=== PATIENT | male | born 1970 | race Caucasian/White ===

== ENCOUNTER 2023-08-15 14:38 | Emergency (ER) | payer BC ==
--- OUTSIDE RECORDS SUMMARY | 2023-08-15 14:56 | XMS REPORT | Continuity of Care Document ---
:1970 Author Organization [facility] t Address [address] [facility] [address] [place] [address] Care Team Providers Name Role Phone SEBASTIEN JENKINS Attending Clinician Unavailable Sandy Williamson Attending Clinician Sebastien Jenkins MD Attending Clinician MAIKEL TORRES Attending Clinician Unavailable Lab, Adc Fam Pob I Attending Clinician Unavailable Maikel Torres PA-C Attending Clinician Payers Payer Name Policy Type Policy Number Effective Date Expiration Date S [facility] - [id number] 2020 00:00:00 OUT OF STATE Problems Condition Condition Condition Status Onset Resolution Last Treating Co mments Source Name Details Category Date Date Treatment Clinician Date No known No known Disease Unive rs active active ity of problems problems [facility] Allergies, Adverse Reactions, Alerts Allergy Allergy Status Severity Reaction(s) Onset Inactive Treating Comm ents Source Name Type Date Date Clinician NO KNOWN Drug Active Univers ALLERGIE Class ity of S [facility] Social History Social Habit Start Date Stop Date Quantity Comments Source Exposure to Not sure [facility] SARS-CoV-2 (event) Medica l Branch Tobacco use and 2021-03-16 2021-03-16 Never used [facility] exposure 00:00:00 00:00:00 [facility] Sex Ass[birth year] At [birth year] [facility] 00:00:00 00:00:00 [facility] Smoking Status Start Date Stop Date Source Unknown if ever smoked [facility] Current every day smoker 2021-03-16 00:00:00 Uni versity [facility] Medications Ordered Filled Start Stop Current Ordering Indication Dosage Frequency Signature Comments Components Source Medication Medication Date Date Medication? Clinician (SIG) Name Name triamcinolo 2020- No [id number] 40mg [facility] 03-16 ity of acetonide 18:45: 17:37 [place] (KENALOG) 00 :00 Medical injection Branch 40 mg triamcinolo 2020- No [id number] 40mg 40 mg, [facility] 03-16 Intramuscu ity of acetonide 18:45: 17:37 [place] 00 :00 1 dose, Medical injection 03/16/21 Bran ch 40 mg at 1345, Routine triamcinolo 2020- No [id number] Apply to [facility] 03-16 area(s) 2 ity of acetonide 00:00: 04:59 (two) [place] 0.1 % 00 :00 times Medical ointment daily for Branch 7 days. Vital Signs Vital Name Observation Time Observation Value Comments Source Systolic blood 2021-03-16 17:20:00 116 mm[facility]Hg[facility] Diastolic blood 2021-03-16 17:20:00 66 mm[Hg] [facility] 2021-03-16 17:20:00 85 /min [facility] Body temperature 2021-03-16 17:20:00 36.56 [facility] Respiratory rate 2021-03-16 17:20:00 18 /min [facility] Body height 2021-03-16 17:20:00 175.3 cm [facility] Body weight 2021-03-16 17:20:00 79.379 kg [facility] BMI 2021-03-16 17:20:00 25.84 kg/m2 [facility] Oxygen saturation in 2021-03-16 17:20:00 97 /min [facility] Arterial blood by [facility] Pulse oximetry Branch Procedures This patient has no known procedures. Encounters Start End Encounter Admission Attending Care Care Encounter Source Date/Time Date/Time Type Type Clinicians Facility Department ID 2021-03-16 2021-03-16 Outpatient Jasmyne JENKINS [facility] [id number] Univers 14:45:00 14:45:00 SEBASTIEN [facility]ly [facility] 2021-03-16 2021-03-16 Outpatient R GREGORY [facility] [id number] Univers 14:00:00 14:00:00 SEBASTIEN [facility] 2021-03-16 2021-03-16 Urgent Sandy Meyers [facility] [[email or web address]] [id number] Univers 12:15:07 12:35:07 Sebastien Reza Formerly [facility] [id number] ity of [place] [id number] Brendon as Professio [phone] Ut dical nal [address] 2020-10-16 2020-10-16 Outpatient R MELISSA [facility] [id number] Univers 18:40:00 18:40:00 MAIKEL [facility] 2020-10-16 2020-10-16 Laboratory Lab, Adc Fam Pob I [facility] [[email or web address]] [id number] Univers 15:48:22 16:08:22 Only Melissa [facility] [id number] ity of [place] [id number] Brendon as Professio [phone] Ut dical nal [address] Results This patient has no known results.
[2023-08-15 15:13] LABS: Absolute Lymphocytes (CBC) 0.9 K/uL (0.7-4.9); Hematocrit 41.6 % (39.6-49.0); Lymphocytes % 14.6 % (15.3-44.8); MCV 82.3 fL (80-100); MPV 7.4 fL (7.6-11.3); Platelets 192 thou/uL (152-406); RBC Red Blood Cell Count 5.06 M/uL (4.33-5.43)
[2023-08-15 15:27] LABS: Potassium 4.2 mEq/L (3.5-5.1)
[2023-08-15] MEDS ORDERED: NA CHLORIDE 0.9% 1,000 ML ONE (16:19)
[2023-08-15] MEDS ORDERED: ACETAMINOPHEN 325 MG TABLET ONE (16:19)
[2023-08-15] MEDS ORDERED: IPRATROPIUM BROM 0.5MG/2.5ML ONE (16:19)
[2023-08-15] MEDS ORDERED: ALBUTEROL 2.5 MG/3 ML NEB SOL ONE (16:19)
--- NOTE | 2023-08-15 16:58 | RAD REPORT ---
EXAM DESCRIPTION: Eri Single View08/15/2023 4:36 pm CLINICAL HISTORY: Cough COMPARISON: 2019 FINDINGS: The lungs appear clear of acute infiltrate. The heart is normal size IMPRESSION: No acute abnormalities displayed
--- NOTE | 2023-08-15 17:01 | EDPHYS ---
Physician Documentation [facility] Name: Malik Montiel Age: 52 yrs Sex: Male : 1970 Arrival Date: 08/15/2023 Time: 14:38 Bed 8 Private MD: ED Physician Zohaib Monteiro HPI: 08/15 14:50 This 52 yrs old Male presents to ER via Ambulatory with complaints of Flu Symptoms. jh7 14:50 Onset: The symptoms/episode began/occurred 6 day(s) ago, and became worse this morning. jh7 Associated signs and symptoms: Pertinent positives: congestion, cough, fever, shortness of breath, Pertinent negatives: abdominal pain, chest pain. Patient reports flu symptoms on Wednesday, work to the entire week, and experienced fever, chills, and productive cough starting today. No past medical history.. Historical: - Allergies: 14:50 No Known Allergies; iw - Home Meds: 14:50 None [Active]; iw - PMHx: 14:50 None; iw - PSHx: 14:50 None; iw - Immunization history:: Adult Immunizations up to date. - Social history:: Smoking status: Patient reports the use of cigarette tobacco products. ROS: 14:50 Eyes: Negative for injury, pain, redness, and discharge, ENT: Negative for injury, jh7 pain, and discharge, Neck: Negative for injury, pain, and swelling, Cardiovascular: Negative for chest pain, palpitations, and edema, Abdomen/GI: Negative for abdominal pain, nausea, vomiting, diarrhea, and constipation, Back: Negative for injury and pain, MS/Extremity: Negative for injury and deformity, Skin: Negative for injury, rash, and discoloration, Neuro: Negative for headache, weakness, numbness, tingling, and seizure, 14:50 Constitutional: Positive for body aches, chills, fever, 14:50 Respiratory: Positive for cough, with yellow sputum, shortness of breath, on exertion. 14:50 All other systems are negative, Exam: 14:50 Head/Face: Normocephalic, atraumatic. Eyes: Pupils equal round and reactive to light, jh7 extra-ocular motions intact. Lids and lashes normal. Conjunctiva and sclera are non-icteric and not injected. Cornea within normal limits. Periorbital areas with no swelling, redness, or edema. Neck: Trachea midline, no thyromegaly or masses palpated, and no cervical lymphadenopathy. Supple, full range of motion without nuchal rigidity, or vertebral point tenderness. No Meningismus. Cardiovascular: Regular rate and rhythm with a normal S1 and S2. No gallops, murmurs, or rubs. Normal PMI, no JVD. No pulse deficits. Abdomen/GI: Soft, non-tender, with normal bowel sounds. No distension or tympany. No guarding or rebound. No evidence of tenderness throughout. Skin: Warm, dry with normal turgor. Normal color with no rashes, no lesions, and no evidence of cellulitis. MS/ Extremity: Pulses equal, no cyanosis. Neurovascular intact. Full, normal range of motion. Neuro: Awake and alert, GCS 15, oriented to person, place, time, and situation. Motor strength 5/5 in all extremities. Sensory grossly intact. Normal gait. 14:50 Constitutional: The patient appears alert, awake, obviously ill, 14:50 Respiratory: the patient does not display signs of respiratory distress, Respirations: normal, Breath sounds: decreased breath sounds, that are mild, are located in both bases, Vital Signs: 14:49 BP 147 / 87; Pulse 107; Resp 18; Temp 100.4; Pulse Ox 95% on R/A; Weight 82.55 kg; iw Height 5 ft. 2 in. ; 15:00 BP 137 / 82; Pulse 80; Resp 17; Temp 100.2(O); Pulse Ox 99% on R/A; rs5 16:20 Temp 99(O); rs5 16:22 BP 133 / 78; Pulse 82; Resp 17; Pulse Ox 99% on R/A; rs5 14:49 Body Mass Index 33.29 (82.55 kg, 157.48 cm) iw MDM: 14:45 Patient medically screened. [facility] 08/15 14:58 Order name: CBC with Diff; Complete Time: 15:[address] [facility] 08/15 14:58 Order name: BMP; Complete Time: 15:[address] [facility] 08/15 14:58 Order name: XRAY Chest (1 view); Complete Time: 16:[address] [facility] Administered Medications: 15:20 Drug: NS 0.9% IV 1000 ml IV at 1 bolus Per protocol; 1000 mL bolus Route: IV; Rate: 1 rs5 bolus; Site: right antecubital; 15:40 Follow up: Response: No adverse reaction rs5 15:20 Drug: DuoNeb Nebulize (2.5 mg - 0.5 mg) 3 ml Nebulizer once Route: Nebulizer; rs5 15:40 Follow up: Response: No adverse reaction rs5 15:30 Drug: Acetaminophen PO 650 mg PO once Route: PO; rs5 16:20 Follow up: Response: No adverse reaction; Temperature is decreased; Pain is decreased rs5 Disposition Summary: 08/15/23 17:01 Discharge Ordered Notes: Location: Home [facility] Problem: new [facility] Symptoms: have improved [facility] Condition: Stable [facility] Diagnosis - Atypical pneumonia [facility] Followup: [facility] - With: Private Physician - When: 2 - 3 days - Reason: Recheck today's complaints Discharge Instructions: - Discharge Summary Sheet [facility] - Community-Acquired Pneumonia, Adult [facility] - Form - Excuse from Work, School, or Physical Activity [facility] Forms: - Medication Reconciliation Form [facility] - Thank You Letter [facility] - Antibiotic Education [facility] - Patient Portal Instructions [facility] - Leadership Thank You Letter [facility] Prescriptions: - albuterol sulfate 90 mcg/actuation Inhalation HFA Aerosol Inhaler - inhale 1 puff INHALATION route every 4-6 hours As needed; 1 Each; Refills: 0, [facility] Product Selection Permitted - Tessalon Perles 100 mg Oral Capsule - take 1 capsule ORAL route every 8 hours As needed; 15 capsule; Refills: 0, [facility] Product Selection Permitted - Doxycycline Hyclate 100 mg Oral tablet - take 1 tablet ORAL route every 12 hours for 7 days; 14 tablet; Refills: 0, [facility] Product Selection Permitted Signatures: Dispatcher [employer] Marie Sánchez RN RN Shayy Hernandez, MANAGER ASSURANCE MANAGER ASSURANCE [facility] Mahad Dumont RN RN rs5
--- NOTE | 2023-08-15 17:01 | ER ---
Nurse's Notes [facility] Name: Malik Montiel Age: 52 yrs Sex: Male : 1970 Arrival Date: 08/15/2023 Time: 14:38 Bed 8 Private MD: Diagnosis: Atypical pneumonia Presentation: 08/15 14:49 Chief complaint: Patient states: flu symptoms since Wednesday , has body aches, chills, iw fever, shaking, cough, nausea, can't eat , feels dehydrated. Coronavirus screen: Client presents with at least one sign or symptom that may indicate coronavirus-19. Ebola Screen: Patient negative for fever greater than or equal to 101.5 degrees Fahrenheit, and additional compatible Ebola Virus Disease symptoms Patient denies exposure to infectious person. Patient denies travel to an Ebola-affected area in the 21 days before illness onset. Initial Sepsis Screen: Does the patient meet any 2 criteria? Does the patient have a suspected source of infection? No. Patient's initial sepsis screen is negative. Risk Assessment: Do you want to hurt yourself or someone else? Patient reports no desire to harm self or others. Onset of symptoms was August 10, 2023. 14:49 Method Of Arrival: Ambulatory iw 14:49 Acuity: CHARIS 3 iw Triage Assessment: 15:00 General: Appears in no apparent distress. comfortable, Behavior is calm, cooperative. rs5 Historical: - Allergies: 14:50 No Known Allergies; iw - Home Meds: 14:50 None [Active]; iw - PMHx: 14:50 None; iw - PSHx: 14:50 None; iw - Immunization history:: Adult Immunizations up to date. - Social history:: Smoking status: Patient reports the use of cigarette tobacco products. Screenin:00 [facility] ED Fall Risk Assessment (Adult) History of falling in the last 3 months, rs5 including since admission No falls in past 3 months (0 pts) Confusion or Disorientation No (0 pts) Intoxicated or Sedated No (0 pts) Impaired Gait No (0 pts) Mobility Assist Device Used No (0 pt) Altered Elimination No (0 pt) Score/Fall Risk Level 0 - 2 = Low Risk Oriented to surroundings, Maintained a safe environment. Abuse screen: Denies threats or abuse. Nutritional screening: No deficits noted. Tuberculosis screening: No symptoms or risk factors identified. Assessment: 15:00 General: Appears in no apparent distress. comfortable, Behavior is calm, cooperative. rs5 Pain: Complains of pain in body aches, generalized Pain currently is 5 out of 10 on a pain scale. Quality of pain is described as aching, Pain began one week ago Is continuous. Neuro: Level of Consciousness is awake, alert, obeys commands, Oriented to person, place, time, situation. Cardiovascular: Heart tones S1 S2 present Rhythm is regular. Respiratory: Airway is patent Respiratory effort is even, unlabored, Respiratory pattern is regular, symmetrical, Breath sounds are clear bilaterally. Respiratory: Reports cough that is productive. GI: Bowel sounds present X 4 quads. : No signs and/or symptoms were reported regarding the genitourinary system. EENT: Reports nasal congestion since one week ago. Derm: Skin is intact, Skin is dry, Skin is normal, Skin temperature is warm. Musculoskeletal: Range of motion: intact in all extremities. Vital Signs: 14:49 BP 147 / 87; Pulse 107; Resp 18; Temp 100.4; Pulse Ox 95% on R/A; Weight 82.55 kg; iw Height 5 ft. 2 in. ; 15:00 BP 137 / 82; Pulse 80; Resp 17; Temp 100.2(O); Pulse Ox 99% on R/A; rs5 16:20 Temp 99(O); rs5 16:22 BP 133 / 78; Pulse 82; Resp 17; Pulse Ox 99% on R/A; rs5 14:49 Body Mass Index 33.29 (82.55 kg, 157.48 cm) ED Course: 14:39 Patient arrived in ED. rg4 14:45 Shayy Hernandez FNP is PHCP. jh7 14:45 Zohaib Monteiro MD is Attending Physician. jh7 14:50 Triage completed. iw 14:51 Arm band placed on. iw 14:55 Marcelina Mendieta, LILLIAM is Primary Nurse. mb9 15:00 Patient has correct armband on for positive identification. Placed in gown. Bed in low rs5 position. Call light in reach. Side rails up X2. 16:01 Mahad Dmuont, RN is Primary Nurse. rs5 16:38 XRAY Chest (1 view) In Process Unspecified. EDMS 17:00 No provider procedures requiring assistance completed. rs5 17:00 IV discontinued, intact, bleeding controlled, No redness/swelling at site. Pressure rs5 dressing applied. Administered Medications: 15:20 Drug: NS 0.9% IV 1000 ml IV at 1 bolus Per protocol; 1000 mL bolus Route: IV; Rate: 1 rs5 bolus; Site: right antecubital; 15:40 Follow up: Response: No adverse reaction rs5 15:20 Drug: DuoNeb Nebulize (2.5 mg - 0.5 mg) 3 ml Nebulizer once Route: Nebulizer; rs5 15:40 Follow up: Response: No adverse reaction rs5 15:30 Drug: Acetaminophen PO 650 mg PO once Route: PO; rs5 16:20 Follow up: Response: No adverse reaction; Temperature is decreased; Pain is decreased rs5 Medication: 17:00 VIS not applicable for this client. rs5 Outcome: 17:00 Discharged to home ambulatory, rs5 17:00 Condition: stable 17:00 Discharge instructions given to patient, Instructed on discharge instructions, follow up and referral plans. medication usage, Demonstrated understanding of instructions, follow-up care, medications, Prescriptions given X 3, 17:01 Discharge ordered by MD. sidhu 17:29 Patient left the ED. rs5 Signatures: Dispatcher [employer] EDMarie Hernandez, RN Dee Alonso4 Shayy Hernandez, BANKRUPTCY PARALEGAL BANKRUPTCY PARALEGAL 7 Marcelina Mendieta, RN RN mb9 Mahad Dumont RN RN rs5
[2023-08-15 18:01] VITALS: BP 147/87; TEMP 100.4; O2SAT 95
== END 2023-08-15 17:29 | disposition home or self-care (01) ==
LOC: ER 14:38
DX: J18.9 Pneumonia, unspecified organism (principal); Z72.0 Tobacco use
CPT/HCPCS: 85025; 80048; 36415; 71045; 94640; 99284; J7613; J7644; J7030